=== PATIENT | male | born 1940 | race Caucasian/White ===

== ENCOUNTER 2024-12-21 03:25 | Emergency (ER) | payer MEDICARE, BC, SELFPAY ==
[2024-12-21 03:43] VITALS: PULSE 67; RESP 18; O2SAT 97
--- NOTE | 2024-12-21 03:55 | PC.NURSE ---
PT NOTED TO HAVE COFFEE GROUND EMESIS, GASTOOCCULT WAS TESTED AND CAME BACK POSITIVE
[2024-12-21 04:00] VITALS: BP 115/53; PULSE 72; RESP 20; TEMP 36.1; O2SAT 100
--- NOTE | 2024-12-21 04:03 | EKG_ITS ---
[facility] Test Date: 2024-12-21 Pat Name: VIVIAN BHARDWAJ Department: Room: - Gender: Male [employer] Specialist: : [id number] Requested By: ED Temporary Provider Order Number: [id number] Reading MD: ED Temporary Provider Measurements Intervals [place] Rate: 54 P: 168 PA: 314 QRS: -8 QRSD: 109 T: 49 QT: 433 QTc: 414 Interpretive Statements SINUS BRADYCARDIA WITH FIRST DEGREE AV BLOCK No previous ECG available for comparison /store/S0/[id number]/ecg/[id number].pdf
--- NOTE | 2024-12-21 05:08 | PD.EDRME ---
Rapid Medical Screening Exam RME Arrival date/time: 12/21/24 03:25 Chief Complaint: Fall Time Seen by Provider: 12/21/24 05:08 Vital signs: Vital Signs Temperature 97 F 12/21/24 04:00 Pulse Rate 72 12/21/24 04:00 Respiratory Rate 20 12/21/24 04:00 Blood Pressure 115/53 L 12/21/24 04:00 Pulse Oximetry (%) 100 12/21/24 04:00 Oxygen Delivery Method Room Air 12/21/24 04:00 Vital signs reviewed by provider: Yes RME Narrative: 84-year-old male with history of hypertension, high cholesterol, not on blood thinners presenting to the emergency department with witnessed dizzy and fall. The patient initially did not want to come to the emergency department and her CT did with EMS. He then decided to come in with his . No chest pain, shortness of breath prior to fall. No reported LOC. Labs, CT scan, EKG, will be ordered. The patient will be evaluated by emergency medicine provider and all workup and management will be determined by that provider.
--- NOTE | 2024-12-21 05:40 | XR_ITS ---
Examination: CT brain head without contrast. 2-D sagittal coronal reconstructions Date and time of exam:December 21, 2024 0725 hours INDICATIONS: Syncopal episode today, patient fell with injury to the head, head pain CTDI: vol (mGy):57.5 DLP: (mGycm):1228 Technique: Multiple CT axial sections of the brain have been obtained, 5 mm slice thickness. Contrast has not been administered. 2-D sagittal, coronal reconstructions have been obtained Low dose protocols were performed. One or more of the following dose reduction techniques were used; automated exposure control, adjustment of the mA and/or KV according to patient size, use of iterative reconstruction technique. Findings: No significant ventricular enlargement. Intra-axial or extra-axial hemorrhage density is not seen. No mass effect or midline shift Basal cisterns are not remarkable. Fourth ventricle is midline. Cranial vault intact. Impression: Negative for acute hemorrhage, mass effect or midline shift
[2024-12-21 06:23] LABS: Basophils # (Auto) 0.1 Thou/mm3 (0.0-0.2); Basophils % (Auto) 0 % (0-2.5); Eosinophils % (Auto) 0 % (0-10); Hemoglobin 14.9 g/dL (13.5-16.0); Immature Granulocytes % (Auto) 0 % (0-0); Immature Granulocytes Auto 0.05 Thou/mm3 (0.00-0.00); Lymphocytes # (Auto) 0.7 Thou/mm3 (1.0-4.8); Lymphocytes % (Auto) 6 % (10-50); Mean Corpuscular HGB Conc 33.9 g/dl (31.0-37.0); Mean Corpuscular Hemoglobin 33.2 pg (25.0-35.0); Mean Corpuscular Volume 98 fL (80-100); Monocytes # (Auto) 0.7 Thou/mm3 (0.0-0.8); Monocytes % (Auto) 5 % (0-12); Neutrophils # (Auto) 11.5 Thou/mm3 (1.8-7.7); Neutrophils % (Auto) 88 % (37-80); Nucleated Red Blood Cell % 0 /100 WBC (0); Platelet Count 140 Thou/mm3 (140-440); RDW Standard Deviation 50.2 fL (35.1-43.9); Red Blood Count 4.49 Miln/mm3 (4.50-5.90)
[2024-12-21 06:35] VITALS: BP 140/68; PULSE 81; RESP 20; TEMP 36.6; O2SAT 100
[2024-12-21 06:39] LABS: Alanine Aminotransferase 15 U/L (10-49); Albumin, Serum 3.7 gm/dL (3.4-4.8); Albumin/Globulin Ratio 1.8 (1.2-2.2); Alkaline Phosphatase 84 U/L (46-116); Anion Gap 6 (7-16); Aspartate Amino Transferase 18 U/L (0-34); BUN/Creatinine Ratio 17 Ratio (12-20); Bilirubin,Total 0.5 mg/dL (0.3-1.2); Blood Urea Nitrogen 19 mg/dL (9-23); Calcium 9.4 mg/dL (8.3-10.6); Calcium (Corrected) 9.6 mg/dL (8.5-10.1); Carbon Dioxide 26.7 mMol/L (20.0-31.0); Chloride 112 mMol/L (98-107); Creatinine (Component) 1.1 mg/dL (0.6-1.3); Globulin 2.1 gm/dL (2.3-3.5); Glucose 113 mg/dL (74-106); Osmolality,Calculated 291 (275-295); Potassium 4.6 mMol/L (3.4-5.1); Sodium 145 mMol/L (136-145); Total Protein 5.8 gm/dL (5.7-8.2); Troponin I < 0.020 ng/mL (0.0-0.045); eGFR > 60 See Note
--- NOTE | 2024-12-21 06:39 | EDNOTE_ITS ---
ED Fall Injury RME/HPI General Chief Complaint: Fall Stated Complaint: FALL Time Seen by Provider: 12/21/24 05:08 Arrival date/time: 12/21/24 03:25 RME / HPI RME / HPI Narrative: 84-year-old male with history of hypertension, high cholesterol, not on blood thinners presenting to the emergency department with witnessed dizzy and fall. The patient initially did not want to come to the emergency department and her CT did with EMS. He then decided to come in with his . No chest pain, shortness of breath prior to fall. No reported LOC. Labs, CT scan, EKG, will be ordered. The patient will be evaluated by emergency medicine provider and all workup and management will be determined by that provider. DR. GARCIA MAIN ED EVALUATION: 84 year old male presents to the Emergency Department [facility] with complaint of head injury with laceration after fall at 2 AM. Per nurse, initially patient had coffee emesis, which tested positive for blood. Per nurse, EMS reported that patient had a possible syncope but does not remember what happened. We asked the patient why he fell but he states I don't know . Patient fell backwards and hit his head and now has a L-shaped laceration measuring about 4 cm on the occipital area. states she was asleep when patient fell. Per , patient got up and walked after the fall to let her know he fell; he fell in the kitchen and walked to the bedroom. No loss of consciousness. No neck pain. No other symptoms reported at this time. Related Data Home Medications ?Medication ?Instructions ?Recorded ?Confirmed hydrochlorothiazide 50 mg tablet 25 mg PO QAM #0 tabs 12/01/13 01/18/19 lisinopril 10 mg tablet 10 mg PO DAILY ##0 12/01/13 01/18/19 atorvastatin 80 mg tablet 80 mg PO QDAY 11/29/1801/18 tamsulosin 0.4 mg capsule (Flomax) 0.4 mg PO QDAY 01/0601/18/19 Allergies Allergy/AdvReac Type Severity Reaction Status Date / Time No Known Allergies Allergy Verified 01/18/19 09:27 Review of Systems Review of Systems Systems Reviewed: All systems reviewed, normal except as documented Narrative Review of Systems: Constitutional: DENIES: fevers; Eyes: DENIES: loss of vision; Head/Ear/Nose: DENIES: loss of hearing. Throat: DENIES: dysphagia. Cardiovascular: DENIES: chest pain, dyspnea, or syncope. Respiratory: DENIES: shortness of breath; Gastrointestinal: DENIES: rectal bleeding or melena. Genitourinary: DENIES: dysuria (painful or difficult urination); Musculoskeletal: DENIES: arthralgia (pain in a joint); Skin: POSITIVES: laceration after fall; DENIES: rash; Neurological: POSITIVES: syncope? (see HPI) DENIES: loss of function or movement; Psychiatric: DENIES: recent major life stressor, emotional problem, illicit drug use or abuse; Endocrinology: DENIES: weight change,; Hematologic/Lymphatic: DENIES: abnormal bruising. Allergic/Immunologic: DENIES: urticaria (hives). Past Medical History Past Medical History CARDIAC: Positive Cardiac Disorders, Edema and Hypertension GASTROINTESTINAL: Positive Gastrointestinal Disorders GENITOURINARY: Positive Genitourinary Disorders and Benign Prostatic Hyperplasia OTHER HISTORY: Positive Falls Social History SMOKING STATUS: Never smoker SUBSTANCE USE: does not use ALCOHOL: Never ED Exam Narrative Physical exam: Physical Exam: General: The vital signs were reviewed. Patient's got a wrap on his head when I walk in the room. He appears angry when asked questions he is grumpy and appears he does not to be bothered patient is unable to recall how he fell or why he fell and appears to have no recall of the events otherwise the patient is non-toxic, in no apparent distress and appears healthy with a patent airway, no respiratory distress and has no apparent circulatory problems. Head & Scalp: The scalp has an L-shaped 4 cm laceration on the left occiput that is minimally gaping and some surrounding hematoma with swelling. The rest the scalp appears to be unremarkable normocephalic, atraumatic. Face: Appears normal and is without lesions, deformity. Ears: Left external pinna appears normal. Right external pinna appears normal. Eyes: The sclera is anicteric. No obvious photophobia. The Left and Right Orbit/Lid/Conjunctiva appears normal without swelling, discoloration or injection. Nose: The nose is without deformity, discharge or tenderness; Throat: Appears normal. The mucous membranes are pink and moist without exudates, redness or mass seen. The tongue appears normal. Neck: The neck is supple and no apparent mass or adenopathy. Chest: The chest wall is normal in size and symmetry and has no chest wall tenderness or crepitus. The patient displays normal ventilator effort without retractions, accessory muscle use and has adequate air movement bilaterally with no wheezes and no rales. Cardiovascular: Regular rate and rhythm; No murmurs, rubs, or gallops; Gastrointestinal: The abdomen appears normal. No obvious hernias or mass. The abdomen is soft and benign, non-distended, with no pain, no guarding and no rebound tenderness. Bowel sounds are present and normal sounding. No CVA tenderness. Genitourinary: Back/Spine: Normal inspection Extremities/Musculoskeletal/lymphatic: The bilateral upper and lower extremities are warm. There is no evidence of arterial insufficiency. There is no evidence of venous insufficiency/edema. The patient spontaneously moves bilateral upper and lower extremities with no pain and no limitation of movement. There is no apparent, injury or trauma. Skin: The skin is warm, dry and intact. No rashes. No petechia. No purpura. No abnormal bruising. The color is appropriate with no cyanosis. Mental status/Psychiatric: Mental status is appropriate for age. The patient has no apparent delusions, visual hallucinations, no apparent audible hallucinations. The patient has no apparent suicidal thoughts/ideation and no apparent homicidal thoughts/ideation. Neurological: The patient is awake, alert, interactive, cordial, cooperative and is oriented to name and situation. The patient follows commands and answers historical question with no impairment. There is no visual disturbance apparent. The pupils are equal and reactive bilaterally with normal eye movements and no diplopia The bilateral upper and lower extremities have normal strength, normal range of motion and normal functioning. The gait, station and balance are not initially tested due to acuity Course Quality Measures none Orders Category Date Time Status EKG (ED ONLY) *Do not use* NOW Care 12/21/24 04:[address] cervical spine wo con Stat Exams 12/21/24 06:[address] head/brain wo con Stat Exams 12/21/24 05:40 Completed EKG (ED Only) Stat Exams 12/21/24 04:03 Draft XR chest 1V portable Stat Exams 12/21/24 06:40 Completed Alcohol, Blood Medical Stat Lab 12/21/24 07:39 Completed CBC Stat Lab 12/21/24 06:04 Completed CMP [Comprehensive Metabolic Panel] Stat Lab 12/21/24 06:04 Completed Drug Screen,Urine Stat Lab 12/21/24 06:45 Completed Lactate (Lactic Acid) Stat Lab 12/21/24 07:39 Completed PT [Prothrombin Time with INR] Stat Lab 12/21/24 07:39 Completed PTT [Partial Thromboplastin Time] Stat Lab 12/21/24 07:39 Completed Troponin I Stat Lab 12/21/24 06:04 Completed Urinalysis Stat Lab 12/21/24 06:45 Completed Venous Blood Gas Stat Lab 12/21/24 07:39 Completed Vital Signs Vital signs: Vital Signs Temperature 97 F 12/21/24 04:00 Pulse Rate 72 12/21/24 04:00 Respiratory Rate 20 12/21/24 04:00 Blood Pressure 115/53 L 12/21/24 04:00 Pulse Oximetry (%) 100 12/21/24 04:00 Oxygen Delivery Method Room Air 12/21/24 04:00 Procedures -ED Procedure Comment Procedure for scalp laceration: Verbal consent was obtained from the patient. 4 cm L-shaped laceration to the left occiput scalp area. The wound was irrigated with tap water and washed with soap and Water. Sterile prep with Betadine. The wound was closed with manjit. No complications. Fall MDM Narrative MDM Narrative:: Patient appears of loss of conscious or is unable to explain why he fell but was not witnessed and evidently was able to get up and walk and went to his who was in the bedroom. Patient is kind of angry and upset did not want to be here evidently signed out or wanted to sign out arm CT with a document to coming. Evidently they noted some coffee-ground emesis on arrival. Medical workup was initiated but is still pending on my initial evaluation. At this point is presumed he has a syncopal event as they are not able to explain why he fell and imaging the states he does drink alcohol. Reevaluation after workup revealed>>> patient has been alert and observed multiple times with no distress. 4 cm of manjit were placed on the scalp laceration and patient tolerated this well. held pressure for a good 10 minutes afterwards as there was some oozing. Note the wound was clean no foreign body or debris was seen. Laboratory workup reveals a chest x-ray which was negative except for some questionable minimal increased vascular markings which in the clinical setting are insignificant. Cervical spine film CT was done which was negative for fracture or dislocation. Head CT was done which was negative. EKG revealed sinus rhythm no acute was seen. Urine drug screen came back negative alcohol level was 0. Urine analysis came back negative for any infection specific IV is still on the dry side at 1025. Chemistry panel reveals sodium 145 potassium 4.6 chloride 112, BUN 19 creatinine 1.1 transaminases were negative bili was negative troponin was negative At 1100 hrs. patient is able to stand and walk without assistance. He is feeling good. There is no active bleeding. Him and his are advised to follow-up with the regular doctor had the manjit out in 7 days. They know to return if getting worse in any way. Clinically labs suggest he is a little on the dry side but he is able to drink without nausea or vomiting and he can go home and drink water. Patient and are advised at great length follow-up with a doctor in 2 days and return to getting worse anyway. They appeared understand the advisements. Maricarmen Burk am scribing for and in the presence of Dr. Garcia. Patient data External records reviewed:: EMS form Clinical information provided by:: patient, EMS and spouse () Social determinants that could affect healthcare access:: none Patient has the following chronic illnesses:: hypercholesterolemia, hypertension, BPH, coronary artery disease How is presenting disease/condition affected by chronic disease/condition?: uneffected by Evaluation data The following diagnostics were reviewed and interpreted by me:: lab results, radiology exam(s) and EKG tracing(s) (EKG#1: EKG at 0406 hours. Interpreted by me: sinus bradycardia, rate 54, no STEMI) Lab and/or radiology exams considered but not ordered:: none Interpretation Summary: Procedure(s): XR chest 1V portable Accession Number(s): [id number] cc: Kate Mccabe NP; Job Garcia MD; Balaji Farnsworth MD~ Examination: AP chest single view Technique one AP portable upright chest single view Exam date and time: December 21, 2024 0714 hrs. Comparison November 17, 2021 Indications: Patient fell today with into the chest, chest pain Findings: Mild prominence left ventricle Poor inspiratory effort No pneumothorax Prominent osteopenia Fractures right fourth and fifth ribs posteriorly which appear old but clinical correlation advised Impression: Poor inspiratory effort chest x-ray No pneumothorax Suggest right rib series follow-up as clinically warranted Dictated By: Balaji Farnsworth MD Procedure(s): CT cervical spine wo con Accession Number(s): [id number] cc: Kate Mccabe NP; Job Garcia MD; Balaji Farnsworth MD~ Examination: CT cervical spine without contrast 2-D sagittal reconstructions 2-D coronal reconstructions 3-D reconstructions. Exam date and time:December 21, 2024 0725 hours INDICATIONS: Syncopal episode today, patient fell with injury to the neck, neck pain CTDI:vol (mGy) 8.94 DLP: (mGycm) 222 Technique: Multiple 2 mm axial sections of the cervical spine have been obtained. The coronal and sagittal reconstructions have been obtained. 3-D reconstructions have been obtained. Low dose protocols were performed. One or more of the following dose reduction techniques were used; automated exposure control, adjustment of the mA and/or KV according to patient size, use of iterative reconstruction technique. Findings: Axial sections demonstrate intact base of the skull. C1 exhibit satisfactory relationship to the odontoid. No acute cervical vertebral body fracture seen. Alignment posterior spinous processes satisfactory. Impression: No acute cervical fracture. Dictated By: Balaji Farnsworth MD Procedure(s): CT head/brain wo con Accession Number(s): [id number] cc: Kate Mccabe NP; Balaji Farnsworth MD; Ginny Stapleton MD~ Examination: CT brain head without contrast. 2-D sagittal coronal reconstructions Date and time of exam:December 21, 2024 0725 hours INDICATIONS: Syncopal episode today, patient fell with injury to the head, head pain CTDI: vol (mGy):57.5 DLP: (mGycm):1228 Technique: Multiple CT axial sections of the brain have been obtained, 5 mm slice thickness. Contrast has not been administered. 2-D sagittal, coronal reconstructions have been obtained Low dose protocols were performed. One or more of the following dose reduction techniques were used; automated exposure control, adjustment of the mA and/or KV according to patient size, use of iterative reconstruction technique. Findings: No significant ventricular enlargement. Intra-axial or extra-axial hemorrhage density is not seen. No mass effect or midline shift Basal cisterns are not remarkable. Fourth ventricle is midline. Cranial vault intact. Impression: Negative for acute hemorrhage, mass effect or midline shift Dictated By: Balaji Farnsworth MD Medications / Prescriptions Medications or Prescriptions considered but not ordered:: none Medication administrations:: see above if any Consultations Consultation(s) initiated? (list below): No Diagnosis Fall Differential Diagnosis: syncope and other (fall, head contusion, scalp laceration) Most likely diagnosis given after review of the tests above:: Fall Contusion of head Laceration of occipital scalp Admission Indicated Admission indicated?: not indicated Admission Request Was there a request for admission?: No Disposition Plan Disposition Plan: Discharge Discharge Attestation Discharge Attestation: The patient and all family members were given an opportunity to ask questions and understood the discharge instructions. Discharge instructions specifically effects, indications for sooner follow up or return to the emergency department, and the expected course of current diagnosis. Patient condition: Stable Discharge Plan Plan Patient Disposition: HOME (Self Care) Prescriptions/Referrals Prescriptions/Med Rec: No Action hydrochlorothiazide 50 MG tablet 25 mg PO QAM Qty: 0 lisinopril 10 MG tablet 10 mg PO DAILY Qty: 0 atorvastatin 80 mg Tablet 80 mg PO QDAY tamsulosin [Flomax] 0.4 mg Capsule 0.4 mg PO QDAY Referrals: No Primary/Family,Physician [Referring Provider] - In 1 week Problem List Clinical Impression: Fall, Contusion of head, Laceration of occipital scalp Impression comment: Uncertain if near syncopal or loss of consciousness. Patient/Caregiver Discharge Instructions Education Materials: ED Head Injury (Adult), ED Laceration Scalp Sutures or ... Additional Instructions: Today we did a medical workup trying to sort out if there were some other medical reason why you may have fallen today. Your medical workup was essentially negative. CAT scan of your head and neck were negative. Please follow-up with your regular doctor for reevaluation of your wound and have the manjit out in 7 days. if you are getting weak or falling please return for reevaluation. No driving until it is clear there is no other medical issue going on and you are cleared by your physician. Print Language: Cambodian Stand Alone Forms: [employer] Award Info., Patient Portal Info Letter
--- NOTE | 2024-12-21 06:39 | PD.EDFALL ---
ED Fall Injury RME/HPI General Chief Complaint: Fall Stated Complaint: FALL Time Seen by Provider: 12/21/24 05:08 Arrival date/time: 12/21/24 03:25 RME / HPI RME / HPI Narrative: 84-year-old male with history of hypertension, high cholesterol, not on blood thinners presenting to the emergency department with witnessed dizzy and fall. The patient initially did not want to come to the emergency department and her CT did with EMS. He then decided to come in with his . No chest pain, shortness of breath prior to fall. No reported LOC. Labs, CT scan, EKG, will be ordered. The patient will be evaluated by emergency medicine provider and all workup and management will be determined by that provider. Related Data Home Medications ?Medication ?Instructions ?Recorded ?Confirmed hydrochlorothiazide 50 mg tablet 25 mg PO QAM #0 tabs 12/01/13 01/18/19 lisinopril 10 mg tablet 10 mg PO DAILY ##0 12/01/13 01/18/19 atorvastatin 80 mg tablet 80 mg PO QDAY 11/29/18 01/18/19 tamsulosin 0.4 mg capsule (Flomax) 0.4 mg PO QDAY 01/18/19 01/18/19 Allergies Allergy/AdvReac Type Severity Reaction Status Date / Time No Known Allergies Allergy Verified 01/18/19 09:27 Course Orders Category Date Time Status EKG (ED ONLY) *Do not use* NOW Care 12/21/24 04:[address] head/brain wo con Stat Exams 12/21/24 05:40 Ordered EKG (ED Only) Stat Exams 12/21/24 04:03 Draft CBC Stat Lab 12/21/24 06:04 Completed CMP [Comprehensive Metabolic Panel] Stat Lab 12/21/24 06:04 Received PT [Prothrombin Time with INR] Stat Lab 12/21/24 06:04 Ordered PTT [Partial Thromboplastin Time] Stat Lab 12/21/24 06:04 Ordered Troponin I Stat Lab 12/21/24 06:04 Received Vital Signs Vital signs: Vital Signs Temperature 97 F 12/21/24 04:00 Pulse Rate 72 12/21/24 04:00 Respiratory Rate 20 12/21/24 04:00 Blood Pressure 115/53 L 12/21/24 04:00 Pulse Oximetry (%) 100 12/21/24 04:00 Oxygen Delivery Method Room Air 12/21/24 04:00 Discharge Plan Prescriptions/Referrals Prescriptions/Med Rec: No Action hydrochlorothiazide 50 MG tablet 25 mg PO QAM Qty: 0 lisinopril 10 MG tablet 10 mg PO DAILY Qty: 0 atorvastatin 80 mg Tablet 80 mg PO QDAY tamsulosin [Flomax] 0.4 mg Capsule 0.4 mg PO QDAY Referrals: No Primary/Family,Physician [Primary Care Provider] - In 1 week Patient/Caregiver Discharge Instructions Print Language: Latvian
[2024-12-21 07:33] LABS: Collection Type, Urine Clean Catch; Squamous Epithelial Cell,Urine 0 /hpf (0-5)
[2024-12-21 07:42] LABS: Bilirubin,Urine Negative (Negative); Blood,Urine Negative (Negative); Clarity,Urine Clear (Clear/Hazy); Color,Urine Yellow (Lt Yel-Yel); Glucose, Urine Negative (Negative); Hyaline Casts,Urine < 1 /hpf (0-1); Ketones,Urine Negative (Negative); Leukocyte Esterase,Urine Negative (Negative); Nitrite,Urine Negative (Negative); PH,Urine 5.5 (5.0-7.0); Protein,Urine Trace (Neg - Trace); RBC,Urine 1 /hpf (0-3); Specific Gravity,Urine 1.025 (1.001-1.035); Urobilinogen,Urine Negative mg/dL (0.0-1.0); WBC,Urine 1 /hpf (0-5)
[2024-12-21 07:48] LABS: Base Excess, Venous -1 (-3-3); O2 Saturation, Venous 63 % (96-97); PCO2, Venous 45 mmHg (36-56); PO2, Venous 34 mmHg (15-58); pH, Venous 7.35 (7.33-7.66)
[2024-12-21 07:49] LABS: Lactate (Lactic Acid) 2.1 mMol/L (0.4-2.0)
[2024-12-21 07:52] LABS: Amphetamine/Methamp Scrn,U Negative (Negative); Barbiturate Screen,Urine Negative (Negative); Benzodiazepines Screen,Urine Negative (Negative); Benzoylecgonine Screen, Ur Negative (Negative); Fentanyl Screen,Urine Negative (Negative); Opiate Screen,Urine Negative (Negative); THC Screen,Urine Negative (Negative)
[2024-12-21 08:20] LABS: Alcohol, Blood Medical < 3.0 mg/dL (0-10.0)
[2024-12-21 08:21] LABS: Partial Thromboplastin Time 22.3 Seconds (22.0-36.0); Prothrombin Time 11.4 Seconds (9.0-12.2)
[2024-12-21 08:25] VITALS: BP 148/73; PULSE 97; RESP 19; TEMP 36.8; O2SAT 96
[2024-12-21 10:45] LABS: Reflex Lactate? Y
[2024-12-21 11:25] VITALS: BP 131/76; PULSE 89; RESP 17; TEMP 36.7; O2SAT 97
== END 2024-12-21 11:25 | disposition home or self-care (01) ==
PROVIDERS: Emergency Medicine; Emergency Provider Emergency Medicine; PCP Nurse Practitioner Family
DX: S01.01XA Laceration without foreign body of scalp, initial encounter (principal); S19.9XXA Unspecified injury of neck, initial encounter; R07.9 Chest pain, unspecified; W19.XXXA Unspecified fall, initial encounter; R00.1 Bradycardia, unspecified; I44.0 Atrioventricular block, first degree; E78.00 Pure hypercholesterolemia, unspecified; I10 Essential (primary) hypertension
CPT/HCPCS: 36415; 70450; 71045; 72125; 80053; 80307; 80320; 81001; 82803; 83605; 84484; 85025; 85610; 85730; 93005; 99284; G0480

== ENCOUNTER → 2025-06-22 | Outpatient (CLI) | payer MEDICARE, BC, SELFPAY ==
[2025-06-22 08:33] LABS: Basophils # (Auto) 0.1 Thou/mm3 (0.0-0.2); Basophils % (Auto) 1 % (0-2.5); Eosinophils # (Auto) 0.2 Thou/mm3 (0.0-0.5); Eosinophils % (Auto) 3 % (0-10); Hematocrit 45.1 % (41.0-53.0); Hemoglobin 14.4 g/dL (13.5-16.0); Immature Granulocytes Auto 0.02 Thou/mm3 (0.00-0.00); Lymphocytes # (Auto) 1.7 Thou/mm3 (1.0-4.8); Lymphocytes % (Auto) 25 % (10-50); Mean Corpuscular HGB Conc 31.9 g/dl (31.0-37.0); Mean Corpuscular Hemoglobin 32.0 pg (25.0-35.0); Mean Corpuscular Volume 100 fL (80-100); Monocytes # (Auto) 0.6 Thou/mm3 (0.0-0.8); Monocytes % (Auto) 9 % (0-12); Neutrophils # (Auto) 4.2 Thou/mm3 (1.8-7.7); Neutrophils % (Auto) 62 % (37-80); Nucleated Red Blood Cell # 0.00 Thou/mm3 (0.00-0.00); Nucleated Red Blood Cell % 0 /100 WBC (0); Platelet Count 164 Thou/mm3 (140-440); RDW Standard Deviation 50.8 fL (35.1-43.9); Red Blood Count 4.50 Miln/mm3 (4.50-5.90); White Blood Count 6.8 Thou/mm3 (3.8-10.6)
[2025-06-22 08:45] LABS: Prostate Specific Antigen 0.44 ng/mL (0-4.00)
[2025-06-22 08:47] LABS: Alanine Aminotransferase 12 U/L (10-49); Albumin, Serum 3.8 gm/dL (3.4-4.8); Albumin/Globulin Ratio 1.9 (1.2-2.2); Alkaline Phosphatase 82 U/L (46-116); Anion Gap 8 (7-16); Aspartate Amino Transferase 20 U/L (0-34); BUN/Creatinine Ratio 17 Ratio (12-20); Bilirubin,Total 0.7 mg/dL (0.3-1.2); Blood Urea Nitrogen 17 mg/dL (9-23); Calcium 9.9 mg/dL (8.3-10.6); Calcium (Corrected) 10.1 mg/dL (8.5-10.1); Carbon Dioxide 29.0 mMol/L (20.0-31.0); Cardiac Risk Estimate 2.7 RATIO (4.0-6.7); Chloride 108 mMol/L (98-107); Cholesterol 123 mg/dL (132-200); Creatinine (Component) 1.0 mg/dL (0.6-1.3); Globulin 2.0 gm/dL (2.3-3.5); Glucose 102 mg/dL (74-106); HDL Cholesterol 46 mg/dL (40-60); LDL Cholesterol,Calculated 68 mg/dL (0-130); Osmolality,Calculated 290 (275-295); Potassium 4.4 mMol/L (3.4-5.1); Sodium 145 mMol/L (136-145); Thyroid Stimulating Hormone 2.55 uIU/mL (0.55-4.78); Total Protein 5.8 gm/dL (5.7-8.2); Triglycerides 47 mg/dL (30-150); eGFR > 60 See Note
== END | disposition home or self-care (01) ==
LOC: COPL 06:37
PROVIDERS: PCP Nurse Practitioner Family; Referring Provider Nurse Practitioner Family; Visit Provider Nurse Practitioner Family
DX: I10 Essential (primary) hypertension (principal); E78.2 Mixed hyperlipidemia; N40.1 Benign prostatic hyperplasia with lower urinary tract symptoms
CPT/HCPCS: 36415; 80053; 80061; 84153; 84443; 85025